=== PATIENT | male | born 1950 | race Caucasian/White ===

== ENCOUNTER 2022-09-15 08:29 | Emergency (ER) | payer MEDICARE, OTHER, SELFPAY ==
--- NOTE | 2022-09-15 08:50 | ED.URI ---
HPI - URI/Sore Throat General Chief Complaint: Upper Respiratory Infection Stated Complaint: dizziness Time Seen by Provider: 09/15/22 08:51 Source: patient Mode of arrival: ambulatory Limitations: no limitations History of Present Illness HPI Narrative: 72-year-old male presents with complaint waking up this am feeling dizzy. Patient reports over the past 2-3 weeks he has had sinus congestion, pressure. Reports just a fullness feeling his sinuses . Denies cough. Afebrile. Two weeks ago a colleague his sons, who is a dentist, call a Z-Regino for him. he was also having similar symptoms of dizziness 2 weeks ago. He states after taking Z-Regino symptoms only improved a little bit. He does not taking any lola-upk-incohsj sinus medications. Denies nausea vomiting. Had 1 episode of diarrhea while at [facility]. He is ambulatory with steady gait. All systems reviewed and negative except as noted above. Related Data Home Medications Medication Instructions Recorded Confirmed amlodipine 10 mg tablet mg 09/15/22 esomeprazole magnesium 20 mg mg 09/15/22 capsule,delayed release lisinopril 20 mg tablet mg 09/15/22 simvastatin 20 mg tablet mg 09/15/22 Allergies Allergy/AdvReac Type Severity Reaction Status Date / Time Penicillins Allergy Unknown Verified 09/15/22 08:58 Review of Systems Review of Systems: CONSTITUTIONAL: Denies fever, chills, or sweats. reports fatigue. EYES: Denies visual changes, redness, or discharge. ENT: Denies rhinorrhea Reports congestion, sinus pressure. Denies sore throat, or otalgia. CARDIOVASCULAR: Denies chest pain, palpitations, or edema. RESPIRATORY: Denies cough or dyspnea. GASTROINTESTINAL: Denies abdominal pain, nausea, vomiting, or diarrhea. GENITOURINARY: Denies dysuria or hematuria. SKIN: Denies rash or itching. MUSCULOSKELETAL: Denies back pain, joint pain, or myalgia. NEUROLOGIC: Denies headache, numbness, or weakness. Reports intermittent dizziness. PSYCHIATRIC: Denies anxiety or depression. All other systems reviewed are negative, except as documented in HPI. PMFSH Comments At time of signature, agree with nursing past medical, surgical, social and family history. There is no relevant family history pertinent to the presenting complaint. Exam Narrative: GENERAL: This is a well-nourished, well-developed patient, in no apparent distress. HEAD: normocephalic, atraumatic. EYES: PERRL. Sclera clear/white. Vision is grossly intact. EARS: External ears normal, auditory canals clear and without drainage, Cloudy appearance to bilateral TMs with dull light reflex. NOSE: External nose normal with Clear nasal drainage with erythema to both nares. Bilateral maxillary sinus tenderness. THROAT: Mucous membranes moist, Erythema with postnasal drainage. NECK: Neck supple, non-tender without lymphadenopathy, masses or thyromegaly. CARDIOVASCULAR: Regular rate and rhythm without murmurs, gallops, or rubs. RESPIRATORY: Clear to auscultation. Breath sounds equal bilaterally. No wheezes, rales, or rhonchi. SKIN: warm, Dry, intact with no suspicious lesions or rash, good texture and turgor. NEURO: awake, alert, and oriented to person, place and time. There were no obvious focal neurologic abnormalities. EXTREMITIES: No joint tenderness, effusion, or edema noted. Course Course Level of Care: Express Care Visit Vital Signs Vital signs: Vital Signs Temperature 36.4 C 09/15/22 08:55 Pulse Rate 69 09/15/22 08:55 Respiratory Rate 18 09/15/22 08:55 Blood Pressure 143/79 H 09/15/22 08:55 Pulse Oximetry 100 09/15/22 08:55 Oxygen Delivery Room Air 09/15/22 08:55 Temperature 36.4 C 09/15/22 08:55 Pulse Rate 69 09/15/22 08:55 Respiratory Rate 18 09/15/22 08:55 Blood Pressure 143/79 H 09/15/22 08:55 Pulse Oximetry 100 09/15/22 08:55 Oxygen Delivery Room Air 09/15/22 08:55 Reviewed MDM - URI/Sore Throat MDM Narrative
[2022-09-15 08:55] VITALS: BP 143/79; PULSE 69; RESP 18; TEMP 36.4; O2SAT 100
== END 2022-09-15 09:16 | disposition home or self-care (01) ==
PROVIDERS: Emergency Provider Nurse Practitioner Family
DX: J01.90 Acute sinusitis, unspecified (principal); R42 Dizziness and giddiness; E78.00 Pure hypercholesterolemia, unspecified; I10 Essential (primary) hypertension; K21.9 Gastro-esophageal reflux disease without esophagitis; Z90.79 Acquired absence of other genital organ(s)
CPT/HCPCS: 99203; G0463

== ENCOUNTER 2022-10-17 12:43 | Emergency (ER) | payer MEDICARE, OTHER, SELFPAY ==
[2022-10-17 12:54] VITALS: BP 136/68; PULSE 64; RESP 18; TEMP 36.2; O2SAT 100
--- NOTE | 2022-10-17 12:57 | ED.GENADULT ---
HPI - General Adult General Chief complaint: Ear Stated complaint: rt ear discomfort Time Seen by Provider: 10/17/22 12:57 Source: patient, RN notes reviewed and old records reviewed Mode of arrival: ambulatory Limitations: no limitations History of Present Illness HPI narrative: 72-year-old male presents to the [facility] with complaints of right ear discomfort. Patient states he has a swishing sound in the ER. Symptoms started yesterday. He states he took a hot shower and symptoms improved but returned today. States he has had some sinus tenderness on the right side. Denies any fevers. Denies headaches. States he had a dental x-ray done which she reports as being normal. No treatment prior to arrival Onset (ago): day(s) (1) Related Data Home Medications Medication Instructions Recorded Confirmed amlodipine 10 mg tablet 10 mg PO DAILY 09/15/22 10/17/22 esomeprazole magnesium 20 mg 20 mg PO DAILY 09/15/22 10/17/22 capsule,delayed release lisinopril 20 mg tablet 20 mg PO DAILY 09/15/22 10/17/22 simvastatin 20 mg tablet 20 mg PO DAILY 09/15/22 10/17/22 Allergies Allergy/AdvReac Type Severity Reaction Status Date / Time Penicillins Allergy Unknown Verified 10/17/22 12:56 Review of Systems Review of Systems: All systems reviewed & are unremarkable except as noted in HPI and below Constitutional: Constitutional: Reports no additional constitutional complaints Eyes: Eyes: Reports no additional eye complaints ENT: Reports as per HPI Cardiovascular: Cardiovascular: Reports no additional cardiovascular complaints, Denies chest pain and Denies dyspnea Respiratory: Respiratory: Reports no additional respiratory complaints, Denies chest congestion, Denies cough and Denies dyspnea Gastrointestinal: Gastrointestinal: Reports no additional gastrointestinal complaints, Denies abdominal pain, Denies nausea and Denies vomiting Musculoskeletal: Musculoskeletal: Reports no additional musculoskeletal complaints Integumentary/Breasts: Skin/Breast: Reports system reviewed and no additional complaints, except as docu Neurologic: Reports system reviewed and no additional complaints, except as documented Psychiatric: Psychiatric: Reports no additional psychiatric complaints Allergic/Immunologic: Allergic/Immunologic: Reports no additional allergic/immunologic complaints PMFSH Past Medical History Medical History (Updated 10/17/22 @ 18:54 by Rocio Yeung APRN) H/O gastroesophageal reflux (GERD) High cholesterol History of high blood pressure Comments At the time of my signature, I reviewed and agree with the nursing past medical, surgical, social, and family history. There is no relevant family history pertinent to the patient complaint. Exam Const: General: cooperative, healthy appearing, comfortable, no acute distress, well developed, alert and well nourished Nutritional Appearance: well nourished Orientation/consciousness: patient oriented x3 Limitations: no limitations HENMT: Head: normal to inspection Ears: hearing grossly normal bilaterally, external ears normal, EAC's normal and TM abnormal bulging on the right and wth effusion serous on the right; not erythematous Face/Nose/Sinus: Normal external nose present, Normal nares present, Normal nasal mucous membranes and turbinates present, Normal septum present, normal facial exam, sinuses nontender and face symmetric Face and sinus: normal facial exam and face symmetric Mouth: Yes Normal oral and palatal mucosa present, Yes lip normal and Yes moist mucous membranes Throat: posterior oropharynx normal and uvula midline Eyes: General: appearance normal, both eyes and all related structures Alignment and Position: alignment normal Periorbital: periorbital findings normal Pupils: Equal, round and reactive pupils present EOM: EOMs intact bilaterally Neck: Neck: normal visual inspection, full ROM, no lymphadenopathy and no meningeal signs Chest: Chest palpa
== END 2022-10-17 13:10 | disposition home or self-care (01) ==
PROVIDERS: Emergency Provider Nurse Practitioner
DX: H65.01 Acute serous otitis media, right ear (principal); K21.9 Gastro-esophageal reflux disease without esophagitis; E78.00 Pure hypercholesterolemia, unspecified; I10 Essential (primary) hypertension
CPT/HCPCS: 99213; G0463

== ENCOUNTER 2024-01-27 17:32 | Emergency (ER) | payer MEDICARE, OTHER, SELFPAY ==
[2024-01-27 17:47] VITALS: BP 130/69; PULSE 66; RESP 16; TEMP 36.8; O2SAT 97
--- NOTE | 2024-01-27 17:59 | ED.URI ---
HPI - URI/Sore Throat General Chief Complaint: Upper Respiratory Infection Stated Complaint: wheezing Time Seen by Provider: 01/27/24 17:45 Source: patient Mode of arrival: ambulatory Limitations: no limitations History of Present Illness HPI Narrative: 73-year-old male presented for complaint of cough and nasal congestion for 3 days. States he could hear wheezing last night and today. Cough and wheezing are worse when lying down at night. Denies shortness of breath, nausea vomiting, diarrhea, fevers or chills. Taking Coricidin HBP for symptoms. Scheduled with pcp in 2 days. Related Data Home Medications Medication Instructions Recorded Confirmed amlodipine 10 mg tablet 10 mg PO DAILY 09/15/22 01/27/24 esomeprazole magnesium 20 mg 20 mg PO DAILY 09/15/22 01/27/24 capsule,delayed release lisinopril 20 mg tablet 20 mg PO DAILY 09/15/22 01/27/24 simvastatin 20 mg tablet 20 mg PO DAILY 09/15/22 01/27/24 aspirin 81 mg chewable tablet 81 mg PO DAILY 01/27/24 01/27/24 fluticasone propionate 50 2 spray intranasal DAILY 01/27/24 01/27/24 mcg/actuation nasal spray,suspension Allergies Allergy/AdvReac Type Severity Reaction Status Date / Time Penicillins AdvReac Mild Rash Verified 01/27/24 17:37 Review of Systems Review of Systems: CONSTITUTIONAL: Denies body aches, fever, chills, or sweats. EYES: Denies visual changes, redness, or discharge. ENT: Reports rhinorrhea, congestion, Denies sore throat, or otalgia. CARDIOVASCULAR: Denies chest pain, palpitations, or edema. RESPIRATORY: Reports cough, wheezing. Denies shortness of breath GASTROINTESTINAL: Denies abdominal pain, nausea, vomiting, or diarrhea. SKIN: Denies rash, itching, or wounds. NEUROLOGIC: Denies headache, numbness, tingling, or weakness. All systems reviewed & are unremarkable except as noted in HPI and below PMFSH Past Medical History Medical History H/O gastroesophageal reflux (GERD) High cholesterol History of high blood pressure Comments At time of signature, I have reviewed and agree with nursing past medical, surgical, social and family history unless otherwise noted. Please see nursing chart for further information. There is no relevant family history pertinent to the presenting complaint Exam Narrative: GENERAL: Well-appearing, in no acute distress. EYES: EOMI. No redness or drainage. Conjunctivae normal. ENT: Mucous membranes pink and moist. No rhinorrhea. TMs normal bilaterally. Throat normal. Uvula midline. NECK: Normal AROM. Supple. CHEST: No respiratory distress. Lungs clear to all chu. HEART: Regular rate and rhythm. No murmur appreciated. ABDOMEN: Soft, nontender, nondistended, normal active bowel sounds. SKIN: Warm, dry, no rash. Capillary refill normal. Normal skin turgor. NEURO: Alert and oriented x3. Gait steady. PSYCH: Normal affect. Course Course Emergency Course: Patient is aware of diagnosis, understands and agrees to treatment plan. Anticipatory guidance given. Patient agrees to follow-up as directed and is aware of reasons to seek care at the emergency department. Portions of this record may have been created with voice recognition software Level of Care: Express Care Visit Vital Signs Vital signs: Vital Signs Temperature 98.3 F 01/27/24 17:47 Pulse Rate 66 01/27/24 17:47 Respiratory Rate 16 01/27/24 17:47 Blood Pressure 130/69 01/27/24 17:47 Pulse Oximetry 97 01/27/24 17:47 Oxygen Delivery Room Air 01/27/24 17:47 Temperature 98.3 F 01/27/24 17:47 Pulse Rate 66 01/27/24 17:47 Respiratory Rate 16 01/27/24 17:47 Blood Pressure 130/69 01/27/24 17:47 Pulse Oximetry 97 01/27/24 17:47 Oxygen Delivery Room Air 01/27/24 17:47 MDM - URI/Sore Throat MDM Narrative Medical decision making narrative: Discussed physical exam findings c/w bronchitis. LCTAB. Advised supportive measu
== END 2024-01-27 18:02 | disposition home or self-care (01) ==
PROVIDERS: Emergency Provider Nurse Practitioner Family
DX: J40 Bronchitis, not specified as acute or chronic (principal); K21.9 Gastro-esophageal reflux disease without esophagitis; E78.00 Pure hypercholesterolemia, unspecified; I10 Essential (primary) hypertension; Z79.82 Long term (current) use of aspirin
CPT/HCPCS: 99213; G0463

== ENCOUNTER 2024-11-14 08:07 | Emergency (ER) | payer MEDICARE, OTHER, SELFPAY ==
--- OUTSIDE RECORDS SUMMARY | 2024-11-14 08:10 | XMS_ITS | Encounter Summary ---
Author Organization [facility] Address [facility] [place] [address] Care Team Providers Care Hair And Makeup Designer Name Role Phone Glenn Hayes DO, Eric Primary Care Provider [phone] Lucrecia Cisneros DO Primary Care Provider [phone] Encounter Details Date Type Department Care Team (Late st Contact Info) Description 07/17/2022 [facility] Documentation [facility] [place] [address] [place] [address] Polo Small MD 3 [facility] [address] [place] [address] Social History Tobacco Use Types Packs/Day Years Used Date Smoking Tobacco: Never Smokeless Tobacco: Never Alcohol Use Standard Drinks/Week Comments Never 0 (1 standard drink = 0.6 oz pur e alcohol) Sex and Gender Information Value Date Recorded Sex Assigned at Not on file Legal Sex Male 10:42 AM CDT Gender Identity Not on file Sexual Orientation Not on file documented as of this encounter Plan of Treatment Upcoming Encounters Date Type Department Care Team (Late st Contact Info) Description 11/15/2024 9:45 AM CDT Office Visit [facility] [place] [facility] [address] [place], [place] [address] Shazia Iqbal MD [facility] [address] [place], [place] [id number] documented as of this encounter Visit Diagnoses Diagnosis Gastroesophageal reflux disease, unspecified whether esophagitis present- Primary documented in this encounter Care Teams Hair And Makeup Designer Relationship Specialty Start Date End Date Scott Elizabeth DO PCP - General FAMILY PRACTICE 12/28/19 06/03/23 Lucrecia Cisneros DO [address] [address] PCP - General FAMILY PRACTICE 06/04/23 documented as of this encounter
--- OUTSIDE RECORDS SUMMARY | 2024-11-14 08:10 | XMS_ITS | Clinical Summary ---
Author Organization [place] [facility] Address [address] [place] [address] Phone Care Team Providers Care Mileage Clerk Name Role Phone Claribel Leon [facility] Primary Care Provider [phone] Allergies Active Allergy Reactions Criticality Noted Date Comments Penicillins Rash Medium 08/27/2014 Medications simvastatin (ZOCOR) 10 mg tablet Take 20 mg by mouth late in the day. Active esomeprazole (NEXIUM) 20 mg Capsule, Delayed Release(E.C.) Take 40 mg by mouth daily before breakfast. Active aspirin (ECOTRIN EC) 81 mg Tablet, Delayed Release (E.C.) Take 81 mg by mouth daily. Active omega-3 fatty acids-fish oil 300-1,000 mg Capsule Take 2 Capsules by mouth daily. Active gluc omer/chondro omer A/vit C/Mn (GLUCOSAMINE 1500 COMPLEX ORAL) Take 2 Each by mouth daily. Active albuterol HFA 90 mcg inhalerIndication s:Viral pneumonia Take 2 Puffs by inhalation every 6 hours as needed for Shortness of Breath. 8.5 Gram 0 Active lisinopriL (PRINIVIL) 40 mg tablet Take 20 mg by mouth daily at bedtime. Active ergocalciferol, vitamin D2, (VITAMIN D ORAL) Take 1 Capsule by mouth daily. Active amLODIPine (NORVASC) 10 mg tabletIndications :Benign hypertension Take 1 Tablet (10 mg) by mouth daily. 30 Tablet 5 0 Active turmeric (CURCUMIN MISC) Take by mouth daily. Active Active Problems Patient Care Coordination No te Formatting of this note migh t be different from the original. Paint Laboratory Technician- Matt Salas MD [facility] Office Problem Noted Date Diagnosed Date Syncope COVID-19 virus detected Acute diarrhea Atrial bigeminy Hyponatremia Benign hypertension Hyperlipidemia Immunizations Immunization Administration Dates Next Due Influenza Seasonal Unspecified Formulation IM Family History Medical History Relation Name Comments Lung Cancer Father Lung Cancer Mother Relation Name Status Comments Father Mother Social History Tobacco Use Types Packs/Day Years Used Date Smoking Tobacco: Former Cigarettes 1.5 10 1 965 - 1974 Smokeless Tobacco: Never Tobacco Cessation:Counseling Given: Not Answered Alcohol Use Standard Drinks/Week Comments No 0 (1 standard drink = 0.6 oz pur e alcohol) Sex and Gender Information Value Date Recorded Sex Assigned at Not on file Legal Sex Male 5:31 PM ACTIVITIES MANAGER Gender Identity Not on file Sexual Orientation Not on file Last Filed Vital Signs Vital Sign Reading Time Taken Comments Blood Pressure 109/71 04/23/2022 11:00 AM ACTIVITIES MANAGER Pulse 49 04/23/2022 11:00 AM ACTIVITIES MANAGER Temperature 36.2 C (97.2 F) 04/23/2022 10:57 AM ACTIVITIES MANAGER Respiratory Rate 17 04/23/2022 11:00 AM ACTIVITIES MANAGER Oxygen Saturation 100% 04/23/2022 11:00 AM ACTIVITIES MANAGER Inhaled Oxygen Concentration - - Weight 86.6 kg (191 lb) 04/23/2022 9:48 AM ACTIVITIES MANAGER Height 172.7 cm (5' 8) 04/23/2022 9:48 AM ACTIVITIES MANAGER Body Mass Index 29.04 04/23/2022 9:48 AM ACTIVITIES MANAGER Plan of Treatment Health Maintenance Due Date Last Done Comments FIT-DNA Q 3 years 1996 FIT/FOBT Q 1 year 1996 Flex Sig/CT Colonography Q 5 years 1996 ZOSTER VACCINE (3 of 3) 04/05/2020 02/09/2020, 03/11 DTAP/TDAP/TD VACCINES (2 - T d or Tdap) 03/11/2022 03/11/2012 INFLUENZA VACCINE (#1) 2024 0, 03/12/2019, 04/17/2018, Additional history exists RSV VACCINE (60+ or ) (1 - 1-dose 75+ series) 2026 COLORECTAL SCREENING 04/23/2027 04/23/2022, 04/23/19 23 Colorectal Cancer Screening 04/23/2027 PNEUMOCOCCAL VACCINE 50+ YEARS Completed 04/17/2018 , 03/15/2016 Procedures Procedure Name Priority Date/Time Associated Diagnosis Comments COLONOSCOPY REPORT 04/23/2022 10 :54 AM ACTIVITIES MANAGER from Last 3 Months or Most Recently Relevant to Health Maintenance Results * COLONOSCOPY REPORT (04/23/2022 10:54 AM ACTIVITIES MANAGER) Narrative Procedure Note Noel Radford MD - 04/23/2022 10:53 AM CST [facility] Endoscopy Patient Name: Jacques Vee Procedure Date: 04/23/2022 Date of : 1950 Attending MD: Noel Radford , , Procedure: Colonoscopy Indications: High risk colon cancer surveillance: Personal history of colonic polyps Providers: Noel Radford Referring MD: Claribel Dumont Medicines: General Anesthesia Complications: No immediate complications. Procedure: Informed consent was obtained for the procedure, including moderate sedation after risks were discussed. Based on the pre-procedure assessment, including review of the patient's medical history, medications, allergies, and review of systems, the patient was deemed to be an appropriate candidate for sedation. A timeout was performed. Continuous ECG monitoring, pulse oximetry, blood pressure monitoring, and direct observation were performed. The Colonoscope was introduced through the anus and advanced to the cecum, identified by appendiceal orifice and ileocecal valve. The colonoscopy was performed with ease. The patient tolerated the procedure well. The quality of the bowel preparation was good. The ileocecal valve, appendiceal orifice, and rectum were photographed. The quality of the bowel preparation was evaluated using the BBPS ([place] Bowel Preparation Scale) with scores of: Right Colon = 2 (minor amount of residual staining, small fragments of stool and/or opaque liquid, but mucosa seen well), Transverse Colon = 2 (minor amount of residual staining, small fragments of stool and/or opaque liquid, but mucosa seen well) and Left Colon = 2 (minor amount of residual staining, small fragments of stool and/or opaque liquid, but mucosa seen well). The total BBPS score equals 6. Findings: The perianal and digital rectal examinations were normal. Non-bleeding internal hemorrhoids were found during retroflexion. The hemorrhoids were small. Multiple small and large-mouthed diverticula were found in the entire colon. The exam was otherwise without abnormality. Impression: - Non-bleeding internal hemorrhoids. - Diverticulosis in the entire examined colon. - The examination was otherwise normal. - No specimens collected. Recommendation: - Patient has a contact number available for emergencies. The signs and symptoms of potential delayed complications were discussed with the patient. Return to normal activities tomorrow. Written discharge instructions were provided to the patient. - Resume previous diet. - Continue present medications. - Repeat colonoscopy in 5 years for surveillance. Procedure Code(s): --- Professional --- 78923, Colonoscopy, flexible; diagnostic, including collection of specimen(s) by brushing or washing, when performed (separate procedure) CPT copyright 2020 [employer]. All rights reserved. The codes documented in this report are preliminary and upon entry level chemist review may be revised to meet current compliance requirements. Noel Radford, 04/23/2022 10:53:44 AM This report has been signed electronically. Number of Addenda: [id number] [id number] [place] [address] Noel Radford MD GI PROCEDURE ORDERABLES Final Result from Last 3 Months or Most Recently Relevant to Health Maintenance Insurance MEDICARE PART A AND B [employer] Commercial MEDICARE FOR LIFE Advance Directives For more information, please contact: [phone] * Full Code (Latest Code Status on File) Date Activated Date Inactivated Comments 02/15/2020 3:03 PM 02/17/2020 7:31 PM * Full Code Date Activated Date Inactivated Comments 09/09/2018 11:15 AM 09/09/2018 4:02 PM Care Teams Mileage Clerk Relationship Specialty Start Date End Date Claribel Leon FNP [address] [place] [address] PCP - General Nurse Practitioner Family 09/08/18
--- OUTSIDE RECORDS SUMMARY | 2024-11-14 08:10 | XMS_ITS | Clinical Summary ---
Author Organization [facility] Address [address] [place] [address] Care Team Providers Care Solid Waste Collection Worker Name Role Phone Lucrecia Cisneros Primary Care Provider [phone] Allergies Active Allergy Reactions Criticality Noted Date Comments Penicillin V Rash Low 03/13/2021 Medications lisinopril (PRINIVIL) 20 MG tablet Take 1 tablet (20 mg total) by mouth. 3 Active Holloway 3 1000 MG Cap Take 2 capsules by mouth daily. Active simvastatin (ZOCOR) 20 MG tablet Take 1 tablet (20 mg total) by mouth nightly at bedtime. 4 Active Esomeprazole Magnesium 20 MG Pack Take 20 mg by mouth. Active amLODIPine (NORVASC) 10 MG tablet Take 1 tablet (10 mg total) by mouth daily. 4 Active aspirin EC (ECOTRIN) 81 MG tablet Take 1 tablet (81 mg total) by mouth daily. Active HYDROcodone-acetami nophen (NORCO) 5-325 MG tabletIndications:A cute Pain < 7 Day Supply Take 1 tablet by mouth every 6 (six) hours as needed. Indications: Acute Pain < 7 Day Supply 15 tablet 4 Active ondansetron (ZOFRAN-ODT) 4 MG disintegrating tablet Take 1 tablet (4 mg total) by mouth every 8 (eight) hours as needed. 20 tablet 4 Active tamsulosin (FLOMAX) 0.4 MG Cap Take 1 capsule (0.4 mg total) by mouth daily. 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 Continue atenolol 25mg daily (#90 RF3) rx written for [employer]. f/u 3-6 months to recheck BP, sooner prn. Hyperlipidemia 06/18/2023 Overview (06/18/2023): Good control on simvistatin 10mg daily - continue (10mg daily #90 RF3 - rx written for [employer]). Rescreen in 12 months. Hyperthyroidism 06/18/2023 Hyponatremia 06/18/2023 Carcinoma of prostate ([facility]) 06/18/19 24 Syncope 06/18/2023 Subconjunctival hemorrhage 06/18/2023 Abnormal electrocardiography 05/21/2023 Dizziness 07/25/2014 Sinus bradycardia 07/25/2014 Abnormal blood chemistry level 08/25/2013 Abnormal finding on thyroid function test 2013 Immunizations Immunization Administration Dates Next Due Influenza (Generic) 02/09/2020, 8,03/15/2016,04/14/19 16,03/11/2012,01/29/2011,04/13/2010,03/15,05/09/2006,02/01/2003,03/18/2001 Influenza Adult (Generic) 03/12/2019,04/17/2018, 02/11/2017 Pneumococcal (Pneumovax 23) 04/17/2018 Pneumococcal (Prevnar 13) 03/15/2016 Shingrix 02/09/2020 Td (TDVAX) 02/01/2003 Tdap (Generic) 03/11/2012 Zoster (Zostavax) 79850 Unt/0.65Ml 03/11/2012 Family History Relation Status Comments Brother 1 Brother 2 Father Mother Sister Alive Social History Tobacco Use Types Packs/Day Years Used Date Smoking Tobacco: Former Cigarettes Q uit: 1976 Smokeless Tobacco: Never Tobacco Cessation:Counseling Given: Not Answered Alcohol Use Standard Drinks/Week Comments Never 0 (1 standard drink = 0.6 oz pur e alcohol) Sex and Gender Information Value Date Recorded Sex Assigned at Not on file Legal Sex Male 10:42 AM CDT Gender Identity Not on file Sexual Orientation Not on file Last Filed Vital Signs Vital Sign Reading Time Taken Comments Blood Pressure 111/61 02/09/2024 2:00 PM PRINCIPAL PROGRAMMER Pulse 55 02/09/2024 2:00 PM PRINCIPAL PROGRAMMER Temperature 36.6 C (97.8 F) 02/09/2024 10:41 AM PRINCIPAL PROGRAMMER Respiratory Rate 18 02/09/2024 2:00 PM PRINCIPAL PROGRAMMER Oxygen Saturation 99% 02/09/2024 2:00 PM PRINCIPAL PROGRAMMER Inhaled Oxygen Concentration - - Weight 86.6 kg (191 lb) 02/09/2024 10:41 AM PRINCIPAL PROGRAMMER Height 175.3 cm (5' 9) 02/09/2024 10:41 AM PRINCIPAL PROGRAMMER Body Mass Index 28.21 02/09/2024 10:41 AM PRINCIPAL PROGRAMMER Plan of Treatment Upcoming Encounters Date Type Department Care Team (Late st Contact Info) Description 11/15/2024 9:45 AM CDT Office Visit [facility], [address] [place], [place] [id number] Shazia Iqbal MD [facility] [address] [place], [place] [id number] Health Maintenance Due Date Last Done Comments Colorectal Cancer Screening Colonoscopy (10 Years) 1950 Hepatitis C 1969 Annual Medicare Wellness Visit 2016 Zoster Vaccines (3 of 3) 04/05/2020 020, 03/11/2012 DTaP, Tdap and Td Vaccines ( 2 - Td or Tdap) 03/11/2022 03/11/2012, 02/01/2003 COVID-19 Vaccine ( - 2023-2 5 season) 2023 RSV Immunization or 60+ Years (1 - 1-dose 75+ series) 2026 Pneumococcal Vaccine: 50+ Years Completed 04/17/2018, 03/15/2016 AAA SCREENING Completed 02/09/2024, 03/13/2021 Meningococcal B Vaccine Aged Out No l onger eligible based on patient's age to complete this topic Meningococcal Vaccine Aged Out No sekou adal eligible based on patient's age to complete this topic RSV Immunizations Under 20 Months Aged Out No longer eligible b ased on patient's age to complete this topic Procedures Procedure Name Priority Date/Time Associated Diagnosis Comments CT ABD+PEL WO CON STAT 02/09/2024 11: 14 AM PRINCIPAL PROGRAMMER from Last 3 Months or Most Recently Relevant to Health Maintenance Results * CT ABD+PEL WO CON (02/09/2024 11:14 AM PRINCIPAL PROGRAMMER) Anatomical Region Laterality Modality Abdomen Computed Tomogra phy 02/09/2024 11:2 1 AM PRINCIPAL PROGRAMMER Impressions 02/09/2024 11:26 AM PRINCIPAL PROGRAMMER Impression: Obstructing 5 mm stone in the proximal left ureter, with mild upstream left hydronephrosis. Additional punctate nonobstructing left renal calculus. Referred By: Interpreted By: Wayne Stroud MD, 02/09/2024 11:21 AM Narrative 02/09/2024 11:26 AM PRINCIPAL PROGRAMMER [address] [address] [address] abdomen and pelvis without IV contrast Comparison: CT abdomen and pelvis 03/13/2021.. Indication: lower abd pain-radiates to back bilaterally, hx kidney stone. History cholecystectomy and prostatectomy. Technique: CT imaging of the abdomen and pelvis was performed without intravenous contrast. Coronal and sagittal reformatted images were generated and reviewed. Findings: Limited assessment given the lack of IV contrast, particularly of the solid organs, bowel, and vasculature. - Lower Thorax: Bibasilar subsegmental atelectasis. Calcified granuloma left lower lobe. No pleural or pericardial effusions. - Liver: Unremarkable noncontrast appearance. - Biliary and Gallbladder: No intrahepatic or extrahepatic bile duct dilatation. The gallbladder is surgically absent. - Spleen: Normal in size. Calcified splenic granulomata. - Pancreas: Unremarkable noncontrast appearance. - Adrenal Glands: Normal. - Kidneys: There is an obstructing calculus in the proximal left ureter measuring 5 mm on axial image 69 of series 2. This is just distal to the renal pelvis. There is mild upstream hydronephrosis. Additional nonobstructing punctate left renal calculus. No hydronephrosis of the right kidney. Multiple right renal parapelvic and simple cysts. Inferior pole right renal lesion measuring 2.5 cm. This measures 22 Hounsfield units on current noncontrasted study, and previously measured 20 HU on prior contrasted study. Given the lack of appreciable enhancement, this is also favored to be benign, likely a minimally complex cyst. - Abdominal and Pelvic Vasculature: No abdominal aortic aneurysm. Mild to moderate atherosclerotic plaque. - Gastrointestinal Tract: No evidence of bowel obstruction. Small hiatal hernia. Colonic diverticulosis without evidence for acute diverticulitis. The appendix is within normal limits. - Peritoneum/Mesentery/Retroperitoneum: No free fluid. No free intraperitoneal air. - Lymph Nodes: No retroperitoneal, mesenteric, or pelvic lymphadenopathy. - Bladder: Normal in appearance. - Pelvic Organs: Status post prostatectomy. - Body Wall: Small left inguinal hernia containing only fat. - Musculoskeletal: No aggressive appearing osseous lesions. Degenerative disc disease L2-L3. Procedure Note Wayne Stroud MD - 02/09/[address] [address] [address] abdomen and pelvis without IV contrast Comparison: CT abdomen and pelvis 03/13/2021.. Indication: lower abd pain-radiates to back bilaterally, hx kidney stone.History cholecystectomy and prostatectomy. Technique: CT imaging of the abdomen and pelvis was performed withoutintravenous contrast. Coronal and sagittal reformatted images weregenerated and reviewed. Findings: Limited assessment given the lack of IV contrast, particularly of thesolid organs, bowel, and vasculature. - Lower Thorax: Bibasilar subsegmental atelectasis. Calcified granulomaleft lower lobe. No pleural or pericardial effusions. - Liver: Unremarkable noncontrast appearance. - Biliary and Gallbladder: No intrahepatic or extrahepatic bile ductdilatation. The gallbladder is surgically absent. - Spleen: Normal in size. Calcified splenic granulomata. - Pancreas: Unremarkable noncontrast appearance. - Adrenal Glands: Normal. - Kidneys: There is an obstructing calculus in the proximal left uretermeasuring 5 mm on axial image 69 of series 2. This is just distal to therenal pelvis. There is mild upstream hydronephrosis. Additionalnonobstructing punctate left renal calculus. No hydronephrosis of theright kidney. Multiple right renal parapelvic and simple cysts. Inferiorpole right renal lesion measuring 2.5 cm. This measures 22 Hounsfieldunits on current noncontrasted study, and previously measured 20 HU onprior contrasted study. Given the lack of appreciable enhancement, this isalso favored to be benign, likely a minimally complex cyst. - Abdominal and Pelvic Vasculature: No abdominal aortic aneurysm. Mild tomoderate atherosclerotic plaque. - Gastrointestinal Tract: No evidence of bowel obstruction. Small hiatalhernia. Colonic diverticulosis without evidence for acute diverticulitis.The appendix is within normal limits. - Peritoneum/Mesentery/Retroperitoneum: No free fluid. No freeintraperitoneal air. - Lymph Nodes: No retroperitoneal, mesenteric, or pelvic lymphadenopathy. - Bladder: Normal in appearance. - Pelvic Organs: Status post prostatectomy. - Body Wall: Small left inguinal hernia containing only fat. - Musculoskeletal: No aggressive appearing osseous lesions. Degenerativedisc disease L2-L3. Impression: Obstructing 5 mm stone in the proximal left ureter, with mild upstreamleft hydronephrosis. Additional punctate nonobstructing left renal calculus. Referred By: Interpreted By: Wayne Stroud MD, 02/09/2024 11:21 AM Sharon Negrete [facility] CT Final Resul t from Last 3 Months or Most Recently Relevant to Health Maintenance Insurance MEDICARE [employer] Care Teams Solid Waste Collection Worker Relationship Specialty Start Date End Date Lucrecia Cisneros DO [address] [phone] PCP - General FAMILY PRACTICE 06/04/23
--- NOTE | 2024-11-14 08:18 | ED.URI ---
HPI - URI/Sore Throat General Chief Complaint: Upper Respiratory Infection Stated Complaint: Cold Like Source: patient Mode of arrival: ambulatory Limitations: no limitations History of Present Illness HPI Narrative: 74-year-old male presented for complaint of cough for 4 days, and feeling weakness/fatigue. He states ?I just feel droopy. ? Patient states 4 days ago he was coughing and felt ?loopy? but was able to continue golfing. Says the cough is only when laying down, says the chest feels tight with deep inspiration. Patient denies any associated chest pain, palpitations, dizziness, diaphoresis, shortness of breath, wheezing, nausea, vomiting, fever or chills. Not taking anything for symptoms. Related Data Home Medications ?Medication ?Instructions ?Recorded ?Confirmed ?Last Taken ?Type amlodipine 10 mg tablet 10 mg PO DAILY 09/15/22 11/14/24 Unknown History esomeprazole magnesium 20 mg 20 mg PO DAILY 09/15/22 11/14/24 Unknown History capsule,delayed release lisinopril 20 mg tablet 20 mg PO DAILY 09/15/22 11/14/24 Unknown History simvastatin 20 mg tablet 20 mg PO DAILY 09/15/22 11/14/24 Unknown History aspirin 81 mg chewable tablet 81 mg PO DAILY 01/27/24 11/14/24 Unknown History fluticasone propionate 50 2 spray intranasal DAILY 01/27/24 11/14/24 Unknown History mcg/actuation nasal spray,suspension Allergies Allergy/AdvReac Type Severity Reaction Status Date / Time Penicillins AdvReac Mild Rash Verified 11/14/24 08:11 Review of Systems Review of Systems: CONSTITUTIONAL: Reports fatigue Denies body aches, fever, chills, or sweats. EYES: Denies visual changes, redness, or discharge. ENT: Denies rhinorrhea, congestion, sore throat, or otalgia. CARDIOVASCULAR: Denies chest pain, palpitations, or edema. RESPIRATORY: Reports cough, denies sob, wheezing. GASTROINTESTINAL: Denies abdominal pain, nausea, vomiting, or diarrhea. SKIN: Denies rash MUSCULOSKELETAL: Denies back pain, joint pain, or myalgia. NEUROLOGIC: Denies headache, numbness, tingling, or weakness. PSYCH: Denies depression or anxiety. All systems reviewed & are unremarkable except as noted in HPI and below PMFSH Past Medical History Medical History H/O gastroesophageal reflux (GERD) High cholesterol History of high blood pressure Comments At time of signature, I have reviewed and agree with nursing past medical, surgical, social and family history unless otherwise noted. Please see nursing chart for further information. There is no relevant family history pertinent to the presenting complaint Exam Narrative: GENERAL: Well-appearing EYES: EOMI. No redness or drainage. Conjunctivae normal. ENT: Mucous membranes pink and moist. No rhinorrhea. TMs normal bilaterally. Throat normal. Uvula midline. NECK: Normal AROM. Supple. CHEST: No respiratory distress. Lungs clear to all chu. HEART: Regular rate and rhythm. No murmur appreciated. ABDOMEN: Soft, nontender, nondistended, normal active bowel sounds. EXTREMITIES: Normal range of motion. No edema. SKIN: Warm, dry, no rash. Capillary refill normal. Normal skin turgor. NEURO: Alert and oriented x3. Gait steady. PSYCH: Normal affect. Course Course Emergency Course: Patient is aware of diagnosis, understands and agrees to treatment plan. Anticipatory guidance given. Patient agrees to follow-up as directed and is aware of reasons to seek care at the emergency department. Portions of this record may have been created with voice recognition software Level of Care: Express Care Visit Vital Signs Vital signs: Vital Signs Temperature 97.4 F L 11/14/24 08:19 Pulse Rate 73 11/14/24 08:19 Respiratory Rate 18 11/14/24 08:19 Blood Pressure 134/60 11/14/24 08:19 Pulse Oximetry 98 11/14/24 08:19 Oxygen Delivery Room Air 11/14/24 08:19 Temperature 97.4 F L 11/14/24 08:19 Pulse Rate 73 11/14/24 08:19 Respiratory Rate 18 11/14/24 08:19 Blood Pressure 134/60 11/14/24 08:19 Pulse Oximetry 98 11/14/24 08:19 Oxygen Delivery Room Air 11/14/24 08:19 MDM - URI/Sore Throat MDM Narrative Medical decision making narrative: Discussed physical exam findings, neg Covid, flu. Shared decision making, Pt declined CXR at this time, will start steroid. discussed possible etiologies. Pt has cardiology appt tomorrow. Advised supportive measures and signs/symptoms to go to the ER at length, v/u. Pt is appropriate for outpt treatment and f/u. Differential Diagnosis Differential diagnosis: Likely upper respiratory infection, sinusitis, viral infection, bronchitis, pharyngitis and other (Angioedema, perforation, asthma, pneumonia, PE, tension pneumothorax, cardiac tamponade [place], pericarditis, pleural effusion, CHF, bronchitis, cardiac arrhythmia) Lab Data Labs: Lab Results 11/14/24 Range/Units 08:34 POC Influenza A Ag Negative (Negative) POC Influenza B Ag Negative (Negative) POC SARS CoV-2 Ag Negative (Negative) Discharge Plan Discharge Clinical Impression: Viral infection Patient Disposition: Home Condition: Stable Instructions: Antibiotic Form, Acute Bronchitis (ED) Additional Instructions: Take medication as directed over the counter Cough syrup may cause drowsiness; avoid driving or take it at night time. Tylenol every 8 hours as needed for pain Symptomatic treatment includes: rest, push fluids. Follow up with your primary care provider as needed in 3 days Go to the ER for worsening symptoms or concerns Patient Language: Maltese Prescriptions: New benzonatate 200 mg capsule 200 mg PO TID PRN (Reason: cough) Qty: 20 0RF prednisone 20 mg tablet 40 mg PO DAILY 4 Days Qty: 8 0RF No Action lisinopril 20 mg tablet 20 mg PO DAILY amlodipine 10 mg tablet 10 mg PO DAILY simvastatin 20 mg tablet 20 mg PO DAILY esomeprazole magnesium 20 mg capsule,delayed release(DR/EC) 20 mg PO DAILY fluticasone propionate 50 mcg/actuation spray,suspension 2 spray INTRANASAL DAILY aspirin [Baby Aspirin] 81 mg Tablet,Chewable 81 mg PO DAILY Follow-up/Referrals: PHYSICIAN,TANK BUILDER AND ERECTOR [Primary Care Provider] - Time of Disposition: 08:47
[2024-11-14 08:19] VITALS: BP 134/60; PULSE 73; RESP 18; TEMP 36.3; O2SAT 98
[2024-11-14 08:35] LABS: EDCOVIDSCREEN Negative (Negative); EDINFLUASCREEN Negative (Negative); EDINFLUBSCREEN Negative (Negative)
== END 2024-11-14 08:49 | disposition home or self-care (01) ==
PROVIDERS: Emergency Provider Nurse Practitioner Family
DX: B34.9 Viral infection, unspecified (principal); Z20.822 Contact with and (suspected) exposure to COVID-19; I10 Essential (primary) hypertension; E78.00 Pure hypercholesterolemia, unspecified; K21.9 Gastro-esophageal reflux disease without esophagitis; Z79.82 Long term (current) use of aspirin
CPT/HCPCS: 87426; 87804; 99213; G0463

== ENCOUNTER 2024-12-18 08:19 | Emergency (ER) | payer MEDICARE, OTHER, SELFPAY ==
--- OUTSIDE RECORDS SUMMARY | 2017-04-30 12:55 | XMS_ITS | Continuity of Care Document ---
Author Organization [facility] Address [address] [place] [address] Phone Care Team Providers Care Lead Software Developer Name Role Phone Unavailable Unavailable Unavailable Allergies, Adverse Reactions, Alerts Substance Reaction Status Criticality Penicillins Active No Information Medications Medication Instructions Dosage Effective Dates (start - stop) Status Comments LISINOPRIL (unknown strength) take 1 tablet by oral route every day Not Available - Active SIMVASTATIN (unknown strength) take 1 tablet by oral route every day in the evening Not Available - Active PRILOSEC (unknown strength) Not Available - Active Procedures Procedure Date Flu Rapid Immunoas; Flu Rapid Immunoas; Offic/outpt E&m New Mod-hi 45 Services provided in an urgent care cent er Advance Directives Directive Yes / No Effective Date File Name No Information Encounters Encounter Description Practice Location Reason(s) For Visit Diagnoses Date Provider Providers Copied on Encounter Offic/outpt E&m New Mod-hi 45 [facility], [address], [place], [place], [id number] , tel:[phone] [facility] sore throat (chief complaint) Fever, unspecifiedACUTE UPPER RESPIRATORY INFECTION 8 No Information Family History Family Member Type Diagnosis Age At Onset No Information Payers Payer name Insurance type Covered green party ID Jory aguirre(s) For Life [facility] [id number] Social History Type Description Quantity Date Captured Comments Alcohol Use Details No Caffeine Use Details Unknown Tobacco Use Status No Information Smoking Status No Information Non-Smoking Tobacco Use Details : No Details Available : No Details Available Sex Male Vital Signs Date / Time: Height Weight BMI Pulse Rate Blood Pressure Temperature Respiratory Rate Body Surface Area Head Circumference Head Circ. Percentile Wt./Kiel. Percentile BMI percentile Pulse Ox Inhaled Ox 6:10 PM 66 /min 122/80 mm[Hg] 97.60 F 16 /min 98 % Chief Complaint And Reason For Visit From encounter dated '04/30/2017 17:55'. sore throat (chief complaint) Reason For Referral Reason For Referral No Information History Of Present Illness Encounter Date Complaint History Of Prese nt Illness No Information Functional Status Date Functional Assessmen t No Information Instructions Date Instruction Additional Infor mation No Information Assessments Type Assessment Date No Information Mental Status Date Cognitive Assessment Orientation - [place] ed to time, place, person, situation. Patient Care Teams Name Effective Dates (start - stop) Status Members No Information
--- NOTE | ~2024-12-18 | XR_ITS ---
EXAMINATION: XR abdomen/kub 1V, 12/18/2024 8:40 CDT HISTORY: left flank pain r/o stone/constipation COMPARISON: No comparisons available. Technique: 3 view. Findings: Bowel gas pattern unremarkable. No obstruction. No free air. No abnormal calcifications No acute osseous abnormality. Impression: 1. No acute abnormality. Reviewed, dictated and finalized at location A. Impression: 1. No acute abnormality.
--- NOTE | 2024-12-18 08:20 | ED.MALEGU ---
HPI - Male Genitourinary General Chief complaint: Urogenital-Male Stated complaint: possible kidney stone Time Seen by Provider: 12/18/24 08:20 Source: patient Mode of arrival: ambulatory Limitations: no limitations History of Present Illness HPI Narrative: Jacques is a 74-year-old male patient presenting to the clinic today with complaints of possible kidney stone. He was golfing a couple days ago and felt as though he may have pulled a muscle. Is complaining of left flank pain. States the pain is an achy pain and he is having bladder fullness-rates pain 4/10 currently. States he felt as though his stomach was upset so he took some Pepto-Bismol. Has had 4 stools this morning. Does feel as though he has abdomen bloating. History of hernia surgery, prostatectomy, diverticulitis, and kidney stones. Denies any urinary symptoms-burning, frequency, or urgency. No visible blood in his urine. Denies any fevers, chills, or body aches. Related Data Home Medications ?Medication ?Instructions ?Recorded ?Confirmed ?Last Taken ?Type amlodipine 10 mg tablet 10 mg PO DAILY 09/15/22 11/14/24 Unknown History esomeprazole magnesium 20 mg 20 mg PO DAILY 09/15/22 11/14/24 Unknown History capsule,delayed release lisinopril 20 mg tablet 20 mg PO DAILY 09/15/22 11/14/24 Unknown History simvastatin 20 mg tablet 20 mg PO DAILY 09/15/22 11/14/24 Unknown History aspirin 81 mg chewable tablet 81 mg PO DAILY 01/27/24 11/14/24 Unknown History fluticasone propionate 50 2 spray intranasal DAILY 01/27/24 11/14/24 Unknown History mcg/actuation nasal spray,suspension Allergies Allergy/AdvReac Type Severity Reaction Status Date / Time Penicillins Allergy Mild Rash Verified 12/18/24 08:31 Review of Systems Review of Systems: Pertinent positives per HPI. Patient denies any fever, chills, rash, headache, visual changes, dizziness, cough, runny nose, sore throat, shortness of breath, chest pain, palpitations, nausea, vomiting, diarrhea, constipation, or any urinary issues. [facility] Past Medical History Medical History High cholesterol H/O gastroesophageal reflux (GERD) History of high blood pressure Comments At the time of my signature, I reviewed and agree with the nursing past medical, surgical, social, and family history. There is no relevant family history pertinent to the patient complaint. Exam Narrative: General: Well-developed, well nourished, in no apparent distress. Head: Normocephalic, atraumatic. Cardio: Regular rate and rhythm, s1 and s2 normal, no murmur appreciated. Resp: Clear to auscultation bilaterally, no rhonchi, rales, wheezing or rubs. Abdomen: Soft, pliable, bowel sounds present in all quadrants, non-tender to palpation, no organomegly, no CVAT tenderness. Course Course Emergency Course: Portions of this record may have been created with voice recognition software. Level of Care: Express Care Visit Vital Signs Vital signs: Vital Signs Temperature 36.2 C L 12/18/24 08:28 Pulse Rate 51 L 12/18/24 08:28 Respiratory Rate 18 12/18/24 08:28 Blood Pressure 130/66 12/18/24 08:28 Pulse Oximetry 100 12/18/24 08:28 Oxygen Delivery Room Air 12/18/24 08:28 Temperature 36.2 C L 12/18/24 08:28 Pulse Rate 51 L 12/18/24 08:28 Respiratory Rate 18 12/18/24 08:28 Blood Pressure 130/66 12/18/24 08:28 Pulse Oximetry 100 12/18/24 08:28 Oxygen Delivery Room Air 12/18/24 08:28 Vital signs reviewed MDM - Male Genitourinary MDM Narrative Medical decision making narrative: At the time of visit patient is resting comfortably on the exam table. Patient appears to be nontoxic. Complaints of possible kidney stone. He was golfing a couple days ago and felt as though he may have pulled a muscle. Is complaining of left flank pain. States the pain is an achy pain and he is having bladder fullness-rates pain 4/10 currently. States he felt as though his stomach was upset so he took some Pepto-Bismol. Has had 4 stools this morning. History of hernia surgery, prostatectomy, diverticulitis, and kidney stones. Denies any urinary symptoms-burning, frequency, or urgency. No visible blood in his urine. Denies any fevers, chills, or body aches.Urine dip ordered. On exam patient has soft pliable abdomen with hyperactive bowel sounds, no CVAT tenderness, abdomen nontender to palpation. Urinalysis dip and KUB x-ray was ordered Labs: Urine dip negative for any sign of infection or blood. Diagnostics: KUB x-ray was performed and negative for kidney stone. Likely constipation Plan: I suspect patient has acute left flank pain and constipation. No visualized stone on KUB and there is no blood and his urine. Recommend MiraLax daily increasing fluids and fiber. Supportive measures were discussed with the patient and they voiced understanding discharge instructions and agrees to treatment plan. Return precautions reviewed Differential Diagnosis Differential diagnosis: Likely urinary tract infection, urethritis, epididymitis, prostatitis, inguinal hernia and other (Diverticulitis, pyelonephritis, constipation, colitis) Lab Data Labs: Lab Results 12/18/24 Range/Units 08:33 POC Urine Color Yellow POC Urine Clarity Clear POC Urine pH 5.5 POC Ur Specif [place] 1.025 POC Urine Protein Negative (Negative) POC Ur Glucose (UA) Negative (Negative) POC Urine Ketones Negative (Negative) POC Urine Blood Negative (Negative) POC Urine Nitrite Negative (Negative) POC Urine Bilirubin Negative (Negative) POC Urine Urobilinogen 0.2 POC U Leukocyte Esteras Negative (Negative) Imaging Data Attestation: I personally reviewed and interpreted this imaging study as follows: My impression: No visualized kidney stone. Constipation Discharge Plan Discharge Clinical Impression: Left flank pain Constipation Qualifiers: Constipation type: unspecified constipation type Qualified Code(s): K59.00 - Constipation, unspecified Patient Disposition: Home Condition: Stable Instructions: Antibiotic Form, Constipation (ED), Flank Pain (ED) Additional Instructions: X-ray shows constipation-no visualized stone. Awaiting radiologist's review Increase fluids and stay well hydrated Increase fiber in your diet Take MiraLax 1 scoop in 8 oz of water or juice daily x1 month May use heat or ice to the affected area Consider massage or chiropractor adjustment if this was discussed with provider May use blue emu, lidocaine patches, or asper cream to affected area- do not apply heat or ice directly over cream- can cause burn. Complete appropriate back stretching exercises. Follow up with your PCP in 3-5 days if symptom persist. Patient Language: Irish Prescriptions: No Action lisinopril 20 mg tablet 20 mg PO DAILY amlodipine 10 mg tablet 10 mg PO DAILY simvastatin 20 mg tablet 20 mg PO DAILY esomeprazole magnesium 20 mg capsule,delayed release(DR/EC) 20 mg PO DAILY fluticasone propionate 50 mcg/actuation spray,suspension 2 spray INTRANASAL DAILY aspirin [Baby Aspirin] 81 mg Tablet,Chewable 81 mg PO DAILY Follow-up/Referrals: UNKNOWN,DOCTOR [Primary Care Provider] Time of Disposition: 09:03 Quality NIHSS Nursing Documentation ED NIHSS nursing documentation: reviewed/agree
--- OUTSIDE RECORDS SUMMARY | 2024-12-18 08:22 | XMS_ITS | Clinical Summary ---
Author Organization [facility] Address [address] [place] [phone] Phone Care Team Providers Care Skilled Nursing Facilities Professional Name Role Phone Claribel Leon [facility] Primary Care Provider [phone] Allergies Active Allergy Reactions Criticality Noted Date [...] migh t be different from the original. Cabin Crew- Matt Salas MD [facility] Heart and Vascular Office Problem Noted Date [...] Smoking Tobacco: Former Cigarettes 1.5 10 1 1974 Smokeless Tobacco: Never Tobacco Cessation:Counseling Given: Not Answered Alcohol Use Standard Drinks/Week Comments No 0 (1 standard drink = 0.6 oz pur e alcohol) Sex and Gender Information Value Date Recorded Sex Assigned at Not on file Legal Sex Male 5:31 PM RELATIONSHIP COUNSELOR Gender Identity Not on file Sexual Orientation Not on file Last Filed Vital Signs Vital Sign Reading Time Taken Comments Blood Pressure 109/71 04/23/2022 11:00 AM RELATIONSHIP COUNSELOR Pulse 49 04/23/2022 11:00 AM RELATIONSHIP COUNSELOR Temperature 36.2 C (97.2 F) 04/23/2022 10:57 AM RELATIONSHIP COUNSELOR Respiratory Rate 17 04/23/2022 11:00 AM RELATIONSHIP COUNSELOR Oxygen Saturation 100% 04/23/2022 11:00 AM RELATIONSHIP COUNSELOR Inhaled Oxygen Concentration - - Weight 86.6 kg (191 lb) 04/23/2022 9:48 AM RELATIONSHIP COUNSELOR Height 172.7 cm (5' 8) 04/23/2022 9:48 AM RELATIONSHIP COUNSELOR Body Mass Index 29.04 04/23/2022 9:48 AM RELATIONSHIP COUNSELOR Plan of Treatment Health Maintenance Due Date [...] Comments COLONOSCOPY REPORT 04/23/2022 10 :54 AM RELATIONSHIP COUNSELOR from Last 3 Months or Most Recently Relevant to Health Maintenance Results * COLONOSCOPY REPORT (04/23/2022 10:54 AM RELATIONSHIP COUNSELOR) Narrative Procedure Note Noel Radford MD - 04/23/2022 10:53 AM CST [facility] Endoscopy Patient Name: Jacques Vee Procedure Date: [...] bowel preparation was evaluated using the BBPS ([place] Bowel Preparation Scale) with scores of: Right [...] for surveillance. Procedure Code(s): --- Professional --- 09978, Colonoscopy, flexible; diagnostic, including collection of specimen(s) by brushing or washing, when performed (separate procedure) CPT copyright 2020 [employer]. All rights reserved. The codes documented in this report are preliminary and upon him coder review may be revised to meet current compliance requirements. Noel Radford, 04/23/2022 10:53:44 AM This report has been signed electronically. Number of Addenda: [id number] [place] [address] Noel Radford MD GI PROCEDURE ORDERABLES Final Result from Last 3 Months or Most Recently Relevant to Health Maintenance Insurance MEDICARE PART A AND B [employer] Commercial MEDICARE FOR LIFE Advance Directives For more information, please contact: [phone] * Full Code (Latest Code Status on File) Date Activated Date Inactivated Comments 02/15/2020 3:03 PM 02/17/2020 7:31 PM * Full Code Date Activated Date Inactivated Comments 09/09/2018 11:15 AM 09/09/2018 4:02 PM Care Teams Skilled Nursing Facilities Professional Relationship Specialty Start Date End Date Claribel Leon FNP [address] [place] [phone] PCP - General Nurse Practitioner Family 09/08/18
--- OUTSIDE RECORDS SUMMARY | 2024-12-18 08:22 | XMS_ITS | Encounter Summary ---
Author Organization [facility] Address [facility] [place] [address] Care Team Providers Care Factory Hand Name Role Phone Glenn Hayes DO, Eric Primary Care Provider [phone] Lucrecia Cisneros DO Primary Care Provider Unavail able Encounter Details Date Type Department Care Team (Late st Contact Info) Description 07/17/2022 [facility] [place] Women [place] [address] Polo Small MD [address] [place] [address] Social History Tobacco Use Types Packs/Day Years [...] Care Team (Late st Contact Info) Description 11/21/2025 9:30 AM CDT Office Visit [place] [facility], [address] [place], [place] [address] Shazia Iqbal MD Three [facility] [address] [place], [place] [id number] documented as of this encounter Visit Diagnoses Diagnosis Gastroesophageal reflux disease, unspecified whether esophagitis present- Primary documented in this encounter Care Teams Factory Hand Relationship Specialty Start Date End Date Scott Elizabeth DO PCP - General FAMILY PRACTICE 12/28/19 06/03/23 Lucrecia Cisneros DO PCP - General FAMILY PRACTICE 06/04/23 documented as of this encounter
--- OUTSIDE RECORDS SUMMARY | 2024-12-18 08:22 | XMS_ITS | Clinical Summary ---
Author Organization [facility] Address [address] [place] [address] Care Team Providers Care Hematologist Name Role Phone Lucrecia Cisneros DO Primary Care Provider Unavail able Allergies Active Allergy Reactions Criticality Noted Date Comments Penicillin V Rash Low 03/13/2021 Medications lisinopril (PRINIVIL) 20 MG tablet Take 1 tablet (20 mg total) by mouth. 3 Active [place] 3 1000 MG Cap Take 2 capsules [...] (81 mg total) by mouth daily. Active ondansetron (ZOFRAN-ODT) 4 MG disintegrating tablet Take 1 tablet (4 mg total) by mouth every 8 (eight) hours as needed. 20 tablet 4 Active tamsulosin (FLOMAX) 0.4 MG Cap Take 1 capsule (0.4 mg total) by mouth daily. 30 capsule 4 Active predniSONE (DELTASONE) 20 MG tablet Take 1 tablet (20 mg total) by mouth daily. 5 Active Active Problems Problem Noted Date Diagnosed [...] Hyperthyroidism 06/18/2023 Hyponatremia 06/18/2023 Carcinoma of prostate ([facility]) 06/18/19 24 Syncope 06/18/2023 Subconjunctival hemorrhage 06/18/2023 Abnormal electrocardiography 05/21/2023 Dizziness 07/25/2014 Sinus bradycardia 07/25/2014 Abnormal blood chemistry level 08/25/2013 Abnormal finding on thyroid function test 2013 Encounters Date Type Department Care Team Description 11/15/2024 9:45 AM CDT Office Visit [facility] on [address] [address] Shazia Iqbal MD Follow Up (Annual ) 11/15/2024 Travel from Last 3 Months Immunizations Immunization Administration Dates Next Due Influenza (Generic) 02/09/2020, 8,03/15/2016,04/14/19 16,03/11/2012,01/29/2011,04/13/2010,03/15,05/09/2006,02/01/2003,03/18/2001 Influenza Adult (Generic) 03/12/2019,04/17/2018, 02/11/2017 Pneumococcal (Pneumovax 23) 04/17/2018 Pneumococcal (Prevnar 13) 03/15/2016 Shingrix 02/09/2020 Td (TDVAX) 02/01/2003 Tdap (Generic) 03/11/2012 Zoster (Zostavax) 57859 Unt/0.65Ml 03/11/2012 Family History Relation Status Comments [...] Sign Reading Time Taken Comments Blood Pressure 130/86 11/15/2024 9:33 AM CDT Pulse 64 11/15/2024 9:33 AM CDT Temperature 36.6 C (97.8 F) 02/09/2024 10:41 AM CENTER CUSTOMER SERVICE ASSOCIATE Respiratory Rate 18 02/09/2024 2:00 PM CENTER CUSTOMER SERVICE ASSOCIATE Oxygen Saturation 97% 11/15/2024 9:33 AM CDT Inhaled Oxygen Concentration - - Weight 88.5 kg (195 lb) 11/15/2024 9:33 AM CDT Height 175.3 cm (5' 9) 11/15/2024 9:33 AM CDT Body Mass Index 28.8 11/15/2024 9:33 AM CDT Plan of Treatment Upcoming Encounters Date Type Department Care Team (Late st Contact Info) Description 11/21/2025 9:30 AM CDT Office Visit [facility], [facility] [address] [place] [address] Shazia Iqbal MD [facility] [address] [place], [place] [id number] Health Maintenance Due Date Last Done Comments Colorectal Cancer Screening Colonoscopy (10 Years) 1950 Hepatitis C 1969 RSV Immunization or 60+ Years (1 - Risk 60-74 years 1-dose series) 2011 Annual Medicare Wellness Visit 2016 Zoster Vaccines (3 of 3) 04/05/2020 020, 03/11/2012 DTaP, Tdap and Td Vaccines ( 2 - Td or Tdap) 03/11/2022 03/11/2012, 02/01/2003 COVID-19 Vaccine (1 - 2023-2 5 season) 2024 Pneumococcal Vaccine: 50+ Years Completed 04/17/2018, 03/15/2016 [...] WO CON STAT 02/09/2024 11: 14 AM CENTER CUSTOMER SERVICE ASSOCIATE from Last 3 Months or Most Recently Relevant to Health Maintenance Results * CT ABD+PEL WO CON (02/09/2024 11:14 AM CENTER CUSTOMER SERVICE ASSOCIATE) Anatomical Region Laterality Modality Abdomen Computed Tomogra phy 02/09/2024 11:2 1 AM CENTER CUSTOMER SERVICE ASSOCIATE Impressions 02/09/2024 11:26 AM CENTER CUSTOMER SERVICE ASSOCIATE Impression: Obstructing 5 mm stone in the proximal left ureter, with mild upstream left hydronephrosis. Additional punctate nonobstructing left renal calculus. Referred By: Interpreted By: Wayne Stroud MD, 02/09/2024 11:21 AM Narrative 02/09/2024 11:26 AM CENTER CUSTOMER SERVICE ASSOCIATE [address] [address] [address] abdomen and pelvis without IV contrast [...] Procedure Note Wayne Stroud MD - 02/09/[address] [address] [address] abdomen and pelvis without IV contrast [...] Stroud MD, 02/09/2024 11:21 AM Sharon Negrete [facility] CT Final Resul t from Last 3 Months or Most Recently Relevant to Health Maintenance Insurance MEDICARE [facility] Care Teams Hematologist Relationship Specialty Start Date End Date Lucrecia Cisneors DO PCP - General FAMILY PRACTICE 06/04/23
[2024-12-18 08:28] VITALS: BP 130/66; PULSE 51; RESP 18; TEMP 36.2; O2SAT 100
[2024-12-18 08:36] LABS: EDUAAPPEAR Clear; EDUABILI Negative (Negative); EDUABLOOD Negative (Negative); EDUACOLOR1 Yellow; EDUAGLUCOSE Negative (Negative); EDUAKETONE Negative (Negative); EDUALEUKO Negative (Negative); EDUANITRATE Negative (Negative); EDUAPH 5.5; EDUAPROTEIN Negative (Negative); EDUASPGRAVITY 1.025; EDUAUROBILI 0.2
== END 2024-12-18 09:06 | disposition home or self-care (01) ==
PROVIDERS: Emergency Provider Nurse Practitioner Family
DX: R10.9 Unspecified abdominal pain (principal); K59.00 Constipation, unspecified; I10 Essential (primary) hypertension; E78.00 Pure hypercholesterolemia, unspecified; K21.9 Gastro-esophageal reflux disease without esophagitis; Z90.79 Acquired absence of other genital organ(s)
CPT/HCPCS: 74018; 81003; 99213; G0463

== ENCOUNTER 2025-02-16 09:20 | Emergency (ER) | payer MEDICARE, OTHER, SELFPAY ==
[2025-02-16 09:31] VITALS: BP 125/67; PULSE 57; RESP 18; TEMP 36.6; O2SAT 99
--- OUTSIDE RECORDS SUMMARY | 2025-02-16 10:09 | XMS_ITS | Clinical Summary ---
Author Organization [facility] Address [address] [place] [address] Care Team Providers Care Tent Worker Name Role Phone Facundo Cisnerosmacariokarly Primary Care Provider [phone] Allergies Active Allergy Reactions Criticality Noted Date Comments Penicillin V Rash Low 03/13/2021 Medications lisinopril (PRINIVIL) 20 MG tablet Take 1 tablet (20 mg total) by mouth. 3 Active [place] 3 1000 MG Cap Take 2 capsules [...] Hyperthyroidism 06/18/2023 Hyponatremia 06/18/2023 Carcinoma of prostate 06/18/2023 Syncope 06/18/2023 Subconjunctival hemorrhage 06/18/2023 Abnormal electrocardiography 05/21/2023 Dizziness 07/25/2014 Sinus bradycardia 07/25/2014 Abnormal blood chemistry level 08/25/2013 Abnormal finding on thyroid function test 2013 Immunizations Immunization Administration Dates Next Due Influenza (Generic) 02/09/2020, 8,03/15/2016,04/14/19 16,03/11/2012,01/29/2011,04/13/2010,03/15,05/09/2006,02/01/2003,03/18/2001 Influenza Adult (Generic) 03/12/2019,04/17/2018, 02/11/2017 Pneumococcal (Pneumovax 23) 04/17/2018 Pneumococcal (Prevnar 13) 03/15/2016 Shingrix 02/09/2020 Td (TDVAX) 02/01/2003 Tdap (Generic) 03/11/2012 Zoster (Zostavax) 59372 Unt/0.65Ml 03/11/2012 Family History Relation Status Comments [...] 36.6 C (97.8 F) 02/09/2024 10:41 AM POLICE SHIFT COMMANDER Respiratory Rate 18 02/09/2024 2:00 PM POLICE SHIFT COMMANDER Oxygen Saturation 97% 11/15/2024 9:33 AM CDT Inhaled Oxygen Concentration - - Weight 88.5 kg (195 lb) 11/15/2024 9:33 AM CDT Height 175.3 cm (5' 9) 11/15/2024 9:33 AM CDT Body Mass Index 28.8 11/15/2024 9:33 AM CDT Plan of Treatment Upcoming Encounters Date Type Department Care Team (Late st Contact Info) Description 11/21/2025 9:30 AM CDT Office Visit [facility], [address] [place], [place] [phone] Shazia Iqbal MD Three [facility] [address] [place] [address] Health Maintenance Due Date Last Done Comments Colorectal Cancer Screening Colonoscopy (10 Years) 1950 Hepatitis C 1969 RSV Immunization or 60+ Years (1 - Risk 60-74 years 1-dose series) 2011 Annual Medicare Wellness Visit 2016 Zoster Vaccines (3 of 3) 04/05/2020 02/09/2020, 08/2011 DTaP, Tdap and Td Vaccines (2 - Td or Tdap) 03/11/2022 03/11/2012, 02/01/2003 COVID-19 Vaccine (1 - season) 2024 Influenza Adult (#1) 2025 02/09/2020, 03/12/2019, 04/17/2018, Additional history exists Pneumococcal Vaccine: 50+ Years Completed 04/17/2018, 03/15/2016 Hepatitis A Vaccines Aged Out No long er eligible based on patient's age to complete this topic Meningococcal B Vaccine Aged Out No l onger eligible based on patient's age to complete this topic Meningococcal Vaccine Aged Out No sekou adal eligible based on patient's age to complete this topic RSV Immunizations Under 20 Months Aged Out No longer eligible based on patient's age to complete this topic Insurance MEDICARE [facility] Care Teams Tent Worker Relationship Specialty Start Date End Date Lurcecia Cisneros DO [address] [address] [place] [address] PCP - General FAMILY PRACTICE 06/04/23
--- OUTSIDE RECORDS SUMMARY | 2025-02-16 10:09 | XMS_ITS | Clinical Summary ---
Author Organization [facility] Address [address] [place] [phone] Phone Care Team Providers Care Risk And Insurance Manager Name Role Phone Claribel Leon [facility] Primary Care Provider [phone] Allergies Active Allergy Reactions Criticality Noted Date [...] migh t be different from the original. Sales Order Administrator- Matt Salas MD [facility] Heart and Vascular Office Problem Noted [...] on file Legal Sex Male 5:31 PM ASSOCIATE WEB DEVELOPER Gender Identity Not on file Sexual Orientation Not on file Last Filed Vital Signs Vital Sign Reading Time Taken Comments Blood Pressure 109/71 04/23/2022 11:00 AM ASSOCIATE WEB DEVELOPER Pulse 49 04/23/2022 11:00 AM ASSOCIATE WEB DEVELOPER Temperature 36.2 C (97.2 F) 04/23/2022 10:57 AM ASSOCIATE WEB DEVELOPER Respiratory Rate 17 04/23/2022 11:00 AM ASSOCIATE WEB DEVELOPER Oxygen Saturation 100% 04/23/2022 11:00 AM ASSOCIATE WEB DEVELOPER Inhaled Oxygen Concentration - - Weight 86.6 kg (191 lb) 04/23/2022 9:48 AM ASSOCIATE WEB DEVELOPER Height 172.7 cm (5' 8) 04/23/2022 9:48 AM ASSOCIATE WEB DEVELOPER Body Mass Index 29.04 04/23/2022 9:48 AM ASSOCIATE WEB DEVELOPER Plan of Treatment Health Maintenance Due Date [...] Comments COLONOSCOPY REPORT 04/23/2022 10 :54 AM ASSOCIATE WEB DEVELOPER from Last 3 Months or Most Recently Relevant to Health Maintenance Results * COLONOSCOPY REPORT (04/23/2022 10:54 AM ASSOCIATE WEB DEVELOPER) Narrative Procedure Note Noel Radford MD - 04/23/2022 10:53 AM CST [facility] Endoscopy Patient Name: Jacques Vee Procedure [...] bowel preparation was evaluated using the BBPS ([place] Bowel Preparation Scale) with scores of: Right [...] for surveillance. Procedure Code(s): --- Professional --- 74004, Colonoscopy, flexible; diagnostic, including collection of specimen(s) by brushing or washing, when performed (separate procedure) CPT copyright 2020 [employer]. All rights reserved. The codes documented in this report are preliminary and upon various exceptionalities teacher review may be revised to meet current compliance requirements. Noel Radford, 04/23/2022 10:53:44 AM This report has been signed electronically. Number of Addenda: [id number] [place] [address] Noel Radford MD GI PROCEDURE ORDERABLES Final Result from Last 3 Months or Most Recently Relevant to Health Maintenance Insurance MEDICARE PART A AND B [employer] Express RX [employer] Commercial MEDICARE FOR LIFE Advance Directives For more information, please contact: [phone] * Full Code (Latest Code Status on File) Date Activated Date Inactivated Comments 02/15/2020 3:03 PM 02/17/2020 7:31 PM * Full Code Date Activated Date Inactivated Comments 09/09/2018 11:15 AM 09/09/2018 4:02 PM Care Teams Risk And Insurance Manager Relationship Specialty Start Date End Date Claribel Leon FNP [address] [place] [phone] PCP - General Nurse Practitioner Family 09/08/18
--- OUTSIDE RECORDS SUMMARY | 2025-02-16 10:09 | XMS_ITS | Encounter Summary ---
Author Organization [facility] Address [facility] [place] [address] Care Team Providers Care Document Control Manager Name Role Phone Glenn Hayes DO, Eric Primary Care Provider [phone] Lucrecia Cisneros DO Primary Care Provider [phone] Encounter Details Date Type Department Care Team (Late Contact Info) Description 07/17/2022 [facility] [place] [facility] Women and Infants [address] [place], [place] [phone] Polo Small MD [address] [facility] [address] [place] [address] Social History Tobacco Use Types Packs/Day Years [...] Encounters Date Type Department Care Team (Late Contact Info) Description 11/21/2025 9:30 AM CDT Office Visit [place] [facility], [address] [place], [place] [phone] Shazia Iqbal MD Three [facility] [address] [place], [place] [phone] documented as of this encounter Visit Diagnoses Diagnosis Gastroesophageal reflux disease, unspecified whether esophagitis present- Primary documented in this encounter Care Teams Document Control Manager Relationship Specialty Start Date End Date Scott Elizabeth DO PCP - General FAMILY PRACTICE 12/28/19 06/03/23 Lucrecia Cisneros DO [address] [address] PCP - General FAMILY PRACTICE 06/04/23 documented as of this encounter
--- OUTSIDE RECORDS SUMMARY | 2025-02-16 10:09 | XMS_ITS | Clinical Summary ---
Author Organization [facility] Address [address] [facility] [place] [address] Care Team Providers Care Landscape Architect And Planner Name Role Phone Amy Sifuentes NP Primary Care Provider Allergies Active Allergy Reactions Criticality Noted Date Comments Penicillins Medications lisinopriL (PRINIVIL,ZESTR [place]) 20 mg tablet Take 1 tablet (20 mg total) by mouth daily Active esomeprazole DR (NexIUM) 20 mg granule packet for oral suspension Take 20 mg by mouth Active simvastatin (ZOCOR) 20 mg tablet Take 1 tablet (20 mg total) by mouth 05/21/2023 Active omega-3 fatty acids-fish oil 300-1,000 mg capsule Take 2 capsules (2 g total) by mouth daily Active aspirin 81 mg enteric coated tablet Take 1 tablet (81 mg total) by mouth 02/05/2024 Active gluco/hyal/Bosw /turm/will/pepp (TURMERIC JOINT ORAL) Take by mouth daily Active glucosamine/cho ndroitin/C/Ren (glucosamine-ch ondroit-vit C-Mn) 253-659-69-5 mg tablet Take 2 capsules by mouth Active cholecalciferol , vitamin D3, 5,000 unit/mL drops Take 1 capsule by mouth daily Active Active Problems Problem Noted Date Diagnosed Date Heartburn 02/09/2025 Routine physical examination 09/16/2024 History of prostate cancer 09/16/2024 Dizziness 07/25/2014 Sinus bradycardia 07/25/2014 Hypertension, essential 08/25/2013 Dyslipidemia 08/25/2013 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 Malignant neoplasm of prostate 07/24/2009 Resolved Problems Problem Noted Date Diagnosed Date Resolved Date Abnormal blood chemistry level 08/25/2013 09/16/2024 Abnormal finding on thyroid function test 08/25/2013 09/16/2024 Encounters Date Type Department Care Team Description 02/09/2025 2:30 PM TELEMETRY MONITOR Office Visit [facility] Gastroenterology at [address] [place] [address] Goyo Loya MD Heartburn (Primary Dx) 02/09/2025 Orders Only [facility] Gastroenterology at [address] [place] [address] Goyo Loya MD Nausea and vomiting, unspecified vomiting type (Primary Dx); Heartburn from Last 3 Months Surgical History Surgery Date Site/Laterality Comments [facility] CHOLECYSTECTOMY Cholecystectomy - (Added by TW Conv) [place] UNLISTED PROCEDURE ABDOME N PERITONEUM & OMENTUM Hernia Repair - (Added by TW Conv) PROSTATECTOMY Medical History Medical History Date Comments Personal history of urinary calculi Nephrolithiasis - (Added by TW Conv) Personal history of other di seases of the nervous system and sense organs History of diplopi a - (Added by TW Conv) GERD (gastroesophageal reflux disease) Hypertension Hyperlipidemia Family History Medical History Relation Name Comments Hypertension Brother Family history of hypertension - (Added by TW Conv) Cancer Father Family history of malignant neoplasm - (Added by TW Conv) Hypertension Father Family history of hypertension - (Added by TW Conv) Cancer Mother Family history of malignant neoplasm - (Added by TW Conv) Diabetes Mother Family history of diabetes mellitus - (Added by TW Conv) Hypertension Mother Family history of hypertension - (Added by TW Conv) Relation Name Status Comments Brother Father Mother Social History Tobacco Use Types Packs/Day Years Used Date Smoking Tobacco: Former Cigarettes Smokeless Tobacco: Never Tobacco Cessation:Counseling Given: Not Answered Alcohol Use Standard Drinks/Week Comments Never 0 (1 standard drink = 0.6 oz pur e alcohol) AUDIT-C Answer Date Recorded Q1: How often do you have a drink containing alcohol? Never 02/11/2025 Q2: How many drinks containi ng alcohol do you have on a typical day when you are drinking? Patient does not drink Q3: How often do you have si x or more drinks on one occasion? Never 02/11/2025 Sex and Gender Information Value Date Recorded Sex Assigned at Not on file Legal Sex Male 12:47 PM TELEMETRY MONITOR Gender Identity Not on file Sexual Orientation Not on file Last Filed Vital Signs Vital Sign Reading Time Taken Comments Blood Pressure 106/72 02/09/2025 2:28 PM TELEMETRY MONITOR Pulse 58 02/09/2025 2:28 PM TELEMETRY MONITOR Temperature - - Respiratory Rate - - Oxygen Saturation 95% 02/09/2025 2:28 PM TELEMETRY MONITOR Inhaled Oxygen Concentration - - Weight 87.5 kg (193 lb) 02/09/2025 2:28 PM TELEMETRY MONITOR Height 175.3 cm (5' 9) 02/09/2025 2:28 PM TELEMETRY MONITOR Body Mass Index 28.5 02/09/2025 2:28 PM TELEMETRY MONITOR Plan of Treatment Upcoming Encounters Date Type Department Care Team (Latest Contact Info) Description 02/22/2025 9:00 AM TELEMETRY MONITOR Hospital Encounter [address] [address] Goyo Loya MD [address] [place] [address] 02/22/2025 9:00 AM TELEMETRY MONITOR Anesthesia Event [address] [address] Ronal Dacosta, BUTTON BUTTONHOLE MARKER [address] [place] [address] 02/22/2025 9:00 AM TELEMETRY MONITOR - 02/22/2025 9:30 AM TELEMETRY MONITOR Surgery [address] [address] Goyo Loya MD [address] [place] [address] ESOPHAGOGASTRODUODENOSCOPY Scheduled Procedures Name Priority Associated Diagnoses Date/Ti me ESOPHAGOGASTRODUODENOSCOPY Heartburn 02/22/2025 9:00 AM TELEMETRY MONITOR Health Maintenance Due Date Last Done Comments Colon Cancer Screening-Colonoscopy 1950 Depression Screening 1950 Fall Risk Assessment 1950 Hepatitis C Screening 1950 Hepatitis B Screening 1969 Well Visit 65+ 2016 Zoster Vaccine (3 of 3) 04/05/2020 02/09/2020, 03/11 DTaP/Tdap/Td Vaccine (2 - Td or Tdap) 03/11/2022 03/11/2012, 02/01/2003 Influenza Vaccine (#1) 2024 , 03/12/2019, 04/17/2018, Additional history exists Pneumococcal vaccine 65+ Completed 04/17/2018, 12/2015 Abdominal Aortic Aneurysm (A AA) Screen Completed 02/09/2024, 03/13/2021 Insurance [email or web address] MEDICARE MEDICARE [facility] Care Teams Landscape Architect And Planner Relationship Specialty Start Date End Date Amy Sifuentes NP [address] [place] [id number] PCP - General 08/04/17
--- NOTE | 2025-02-16 11:36 | ED.URI ---
HPI - URI/Sore Throat General Chief Complaint: Upper Respiratory Infection Stated Complaint: Upper Respiratory Infection Time Seen by Provider: 02/16/25 09:50 Source: patient and RN notes reviewed Mode of arrival: ambulatory Limitations: no limitations History of Present Illness HPI Narrative: 74-year-old male presents Express Care complaining of upper respiratory symptoms for approximately 1.5 weeks. Patient reports sinus pressure, mucopurulent nasal drainage, congestion, cough as an gotten better. Patient reports the cough is worse at night, reports having coughing fits a keep him up at night. Patient denies any other upper respiratory symptoms, fevers, body aches, chills, nausea, vomiting, diarrhea, chest pain, difficulty breathing, or any other symptoms. Patient has been taking [id number] Mucinex to help with symptoms. Related Data Home Medications ?Medication ?Instructions ?Recorded ?Confirmed ?Last Taken ?Type amlodipine 10 mg tablet 10 mg PO DAILY 09/15/22 11/14/24 Unknown History esomeprazole magnesium 20 mg 20 mg PO DAILY 09/15/22 11/14/24 Unknown History capsule,delayed release lisinopril 20 mg tablet 20 mg PO DAILY 09/15/22 11/14/24 Unknown History simvastatin 20 mg tablet 20 mg PO DAILY 09/15/22 11/14/24 Unknown History Allergies Allergy/AdvReac Type Severity Reaction Status Date / Time Penicillins Allergy Mild Rash Verified 02/16/25 09:29 Review of Systems Review of Systems: CONSTITUTIONAL: Denies fever, chills, body aches, or sweats. EYES: Denies visual changes, redness, or discharge. ENT: Positive for sinus pressure, congestion. Negative for rhinorrhea, sore throat, or otalgia. CARDIOVASCULAR: Denies chest pain, palpitations, or edema. RESPIRATORY: Positive for cough. Negative for dyspnea or wheezing. GASTROINTESTINAL: Denies abdominal pain, nausea, vomiting, or diarrhea. GENITOURINARY: Denies dysuria or hematuria. SKIN: Denies rash or itching. MUSCULOSKELETAL: Denies back pain, joint pain, or myalgia. NEUROLOGIC: Denies headache, numbness, or weakness. PSYCHIATRIC: Denies anxiety or depression. All other systems reviewed are negative, except as documented in HPI. [facility] Past Medical History Medical History High cholesterol H/O gastroesophageal reflux (GERD) History of high blood pressure Comments At the time of my signature, I reviewed and agree with the nursing past medical, surgical, social, and family history. There is no relevant family history pertinent to the patient complaint. Exam Narrative: GENERAL: This is a well-nourished, well-developed adult, in no apparent distress. They are non ill-appearing, nontoxic appearing. HEAD: normocephalic, atraumatic. EYES: Sclera clear/white. Vision is grossly intact. Conjunctiva normal bilaterally. Extraocular movements intact. EARS: External ears normal, auditory canals clear and without drainage, TMs without erythema or perforation. Hearing grossly intact. NOSE: External nose normal with no obvious nasal discharge, nasal turbinates erythematous with exudate, no rhinorrhea. THROAT: Mucous membranes moist, posterior pharynx erythematous without exudate. Uvula is midline. Postnasal drip present. Maxillary frontal in sinus tenderness to palpation. NECK: Neck supple, non-tender without lymphadenopathy, masses or thyromegaly. CARDIOVASCULAR: Regular rate and rhythm without murmurs, gallops, or rubs. RESPIRATORY: Clear to auscultation. Breath sounds equal bilaterally. No wheezes, rales, or rhonchi. SKIN: warm, Dry, intact with no suspicious lesions or rash, good texture and turgor. NEURO: awake, alert, and oriented to person, place and time. There were no obvious focal neurologic abnormalities. EXTREMITIES: No joint tenderness, effusion, or edema noted. BACK: Nontender without deformity. Course Course Emergency Course: Portions of this record may have been created with voice recognition software Level of Care: Express Care Visit Vital Signs Vital signs: Vital Signs Temperature 97.9 F 02/16/25 09:31 Pulse Rate 57 L 02/16/25 09:31 Respiratory Rate 18 02/16/25 09:31 Blood Pressure 125/67 02/16/25 09:31 Pulse Oximetry 99 02/16/25 09:31 Oxygen Delivery Room Air 02/16/25 09:31 Temperature 97.9 F 02/16/25 09:31 Pulse Rate 57 L 02/16/25 09:31 Respiratory Rate 18 02/16/25 09:31 Blood Pressure 125/67 02/16/25 09:31 Pulse Oximetry 99 02/16/25 09:31 Oxygen Delivery Room Air 02/16/25 09:31 Reviewed MDM - URI/Sore Throat MDM Narrative Medical decision making narrative: Given patient's length of symptoms likely has a bacterial sinusitis, will treat with doxycycline given penicillin allergy. Also will prescribe benzonatate tablets for cough. Discussed physical exam findings. Advised supportive measures and signs/symptoms to go to the ER. Pt is appropriate for outpt treatment and f/u. Differential Diagnosis Differential diagnosis: Likely upper respiratory infection, sinusitis, viral infection and bronchitis Critical Care Time Critical Care Time Critical Care Time: No Discharge Plan Discharge Clinical Impression: Sinusitis Qualifiers: Sinusitis location: unspecified location Chronicity: acute Recurrence: non-recurrent Qualified Code(s): J01.90 - Acute sinusitis, unspecified Patient Disposition: Home Condition: Stable Instructions: Antibiotic Form, Sinusitis (ED) Additional Instructions: Take the antibiotics as directed and complete the course even if you start to feel better. You may use a Neti pot saline rinse 3 times a day with lukewarm distilled water Continue to take Tylenol or Motrin as needed for pain or fevers. Follow instructions on the bottle. Use a humidifier or vaporizer at night. Take benzonatate tablets as needed for cough. Drink plenty of water. 8-10 glasses per day. Use flonase 2 times per day for 5 days then as needed Take mucinex 2 times per day and be sure to take with 8oz of water. Follow up with Primary provider in 3-5 days Please go to the ER if he develops any difficulty breathing, worsening symptoms, chest pains, vomiting, uncontrolled fevers, or any other serious concerns Patient Language: Swiss Prescriptions: New benzonatate 200 mg capsule 200 mg PO BID PRN (Reason: cough) Qty: 20 0RF doxycycline monohydrate 100 mg capsule 100 mg PO BID 7 Days Qty: 14 0RF No Action lisinopril 20 mg tablet 20 mg PO DAILY amlodipine 10 mg tablet 10 mg PO DAILY simvastatin 20 mg tablet 20 mg PO DAILY esomeprazole magnesium 20 mg capsule,delayed release(DR/EC) 20 mg PO DAILY Follow-up/Referrals: PHYSICIAN,TELEVISION STATION MANAGER [Primary Care Provider, Internal Medicine] Time of Disposition: 10:07
== END 2025-02-16 10:12 | disposition home or self-care (01) ==
DX: J01.90 Acute sinusitis, unspecified (principal)
CPT/HCPCS: 99213; G0463